=== PATIENT | male | born 1985 | race African-American/Black ===

== ENCOUNTER 2016-07-21 15:42 | Emergency (ER) | payer MEDICAID ==
[~2016-07-21] VITALS: Ht 185.4 cm; Wt 113.3 kg
[~2016-07-21 15:42] MED LIST: CIPR500T4 PO; FLAG500T PO
[2016-07-21 15:45] VITALS: BP 123/80; PULSE 89; RESP 15; TEMP 98.4; O2SAT 97
[2016-07-21] MEDS ORDERED: BACT800T5 PO (16:21)
--- NOTE | 2016-07-21 16:21 | PD ---
HPI Chief Complaint: Complaint Time Seen by Provider: 16:03 Travel History International Travel<30 days: No Contact w/Intl Traveler<30days: No Traveled to known affect area: No History of Present Illness HPI 31-year-old man who presents with a tender nodule in his perineum. He has a history of scrotal abscess required I&D about a year ago. He states past 2 days there is minimal but more tender. It is not as painful as before. No fevers or chills. No drainage. No other complaints. History Past Medical History Medical History: Denies Significant Hx Influenza Vaccination: No Social History Alcohol Use: No Tobacco Use: Yes (1PPD) Allergies-Medications (Allergen,Severity, Reaction): Coded Allergies: Pepcid (Verified Allergy, Severe, Swelling, 07/21/16) Zantac (Verified Allergy, Severe, Hives, 07/21/16) Reported Meds & Prescriptions Reported Meds & Active Scripts Active No Active Prescriptions or Reported Medications Review of Systems Except as stated in HPI: all other systems reviewed are Neg Physical Exam Narrative GENERAL: Well-appearing 31-year-old man, no acute distress. SKIN: Warm and dry. CARDIOVASCULAR: Warm and well perfused. RESPIRATORY: Normal rate and effort. : Normal external male genitalia. In the perineum, just posterior to the scrotum, there is a small tender nodule with an area of previous scarring. There is no fluctuance or redness. There is only minimal tenderness. NEUROLOGICAL: Awake and alert. No gross deficits. Data Data Last Documented VS Vital Signs Date Time Temp Pulse Resp B/P Pulse Ox O2 Delivery O2 Flow Rate FiO2 07/21/16 15:45 98.4 89 15 123/80 97 MDM Medical Decision Making Medical Screen Exam Complete: Yes Emergency Medical Condition: Yes Differential Diagnosis Abscess, phlegmon, scar, nodule, other Narrative Course Medical decision making 31-year-old man with a tender nodule on his perineum. It looks like he has scarring from his previous I&D. I don't see fluctuant redness or erythema or significant tenderness to suggest recurrent infection. There could be early infection or he could be having just some irritation of the scar. 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 On liver prescription for Bactrim and encouraged him to started in 24 hours if he has really worsening symptoms, or in 48 hours if not improving. Diagnosis Primary Impression: Perineal pain in male Additional Instructions: Take Bactrim in 24 hours if you have any worsening symptoms, or in 48 hours if not improving. Return to the emergency department for any new or worsening symptoms. Med/Other Pt SpecificInfo: Prescription(s) given Scripts Sulfamethoxazole-Trimethoprim (Bactrim DS)800-160 Mg Tab1 Tab PO BID #14 TAB Ref 0 Prov:Tung Vargas MD 07/21/16 Disposition: 01 DISCHARGE HOME Condition: Stable Tung Vargas MD Jul 21, 2016 16:21
== END 2016-07-21 16:34 | disposition home or self-care (01) ==
LOC: PHED 15:42
DX: R10.2 Pelvic and perineal pain (principal); F17.210 Nicotine dependence, cigarettes, uncomplicated
CPT/HCPCS: 99283

== ENCOUNTER 2016-07-24 07:12 | Emergency (ER) | payer MEDICAID ==
[~2016-07-24] VITALS: Ht 185.4 cm; Wt 112.0 kg
[~2016-07-24 07:12] MED LIST changes: +BACT800T5 PO; -CIPR500T4 PO; -FLAG500T PO
[2016-07-24 07:21] VITALS: BP 131/89; PULSE 88; RESP 17; TEMP 98.4; O2SAT 97
[2016-07-24] MEDS ORDERED: CLINDAMYCIN INJ 600 MG in SODIUM CHLORIDE 0.9% INJ 100 ML IV ONE (07:30)
[2016-07-24] MEDS ORDERED: LIDOCAINE HCL 1% 50 ML VIAL INFIL ONE (07:30)
--- NOTE | 2016-07-24 07:43 | PD ---
HPI Chief Complaint: Pain: Acute or Chronic Time Seen by Provider: 07:19 Travel History International Travel<30 days: No Contact w/Intl Traveler<30days: No Traveled to known affect area: No History of Present Illness HPI 31yo M presents to the ED with c/o worsening pain in his perineum. Pt was seen 07/21/16 and found to have a tender nodule in his perineum. There was no fluctuance at the time and pt was prescribed bactrim. Pt states he has been taking bactrim and today is day 4. States the pain is getting worse and he thinks there is swelling but cant see. Denies any fever, chest pain, sob, n/v, abdominal pain. Pt was admitted 08/05/15-08/07/15 for the same thing and had I&D in the ED. Pt was admitted for IV antibiotics and urology was consulted. PFSH Past Medical History Medical History: Denies Significant Hx Hx Anticoagulant Therapy: No Cancer: No Cardiovascular Problems: No Chemotherapy: No Cerebrovascular Accident: No Diabetes: No Diminished Hearing: No Endocrine: No Gastrointestinal Disorders: No Genitourinary: No Immune Disorder: No Implanted Vascular Access Dvce: No Musculoskeletal: No Neurologic: No Psychiatric: No Reproductive: No Respiratory: No Immunizations Current: No Tetanus Vaccination: < 5 Years Past Surgical History Other Surgery: Yes (PILONIDAL CYST) Social History Alcohol Use: No Tobacco Use: Yes (1PPD) Substance Use: No Allergies-Medications (Allergen,Severity, Reaction): Coded Allergies: Pepcid (Verified Allergy, Severe, Swelling, 07/24/16) Zantac (Verified Allergy, Severe, Hives, 07/24/16) Reported Meds & Prescriptions Reported Meds & Active Scripts Active Ibuprofen 600 Mg Tab 600 Mg PO Q8HR PRN Clindamycin (Clindamycin HCl) 300 Mg Cap 300 Mg PO Q6H 7 Days Bactrim DS (Sulfamethoxazole-Trimethoprim) 800-160 Mg Tab 1 Tab PO BID Review of Systems Except as stated in HPI: all other systems reviewed are Neg Physical Exam Narrative GENERAL: 31yo M not in distress. SKIN: Focused skin assessment warm/dry. HEAD: Atraumatic. Normocephalic. CARDIOVASCULAR: Regular rate and rhythm. No murmur appreciated. RESPIRATORY: No accessory muscle use. Clear to auscultation. Breath sounds equal bilaterally. GASTROINTESTINAL: Abdomen soft, non-tender, nondistended. No rebound tenderness or guarding. : No ttp bilateral testicles. No penile discharge. +TTP and 3cm by 2cm swelling in perineum. +Fluctuance. MUSCULOSKELETAL: No obvious deformities. No clubbing. No cyanosis. No edema. NEUROLOGICAL: Awake and alert. No obvious cranial nerve deficits. Motor grossly within normal limits. Normal speech. PSYCHIATRIC: Appropriate mood and affect; insight and judgment normal. Data Data Last Documented VS Vital Signs Date Time Temp Pulse Resp B/P Pulse Ox O2 Delivery O2 Flow Rate FiO2 07/24/16 07:21 98.4 88 17 131/89 97 Orders Complete Blood Count With Diff (07/24/16 07:27) Basic Metabolic Panel (Bmp) (07/24/16 07:27) Prothrombin Time / Inr (Pt) (07/24/16 07:27) Act Partial Throm Time (Ptt) (07/24/16 07:27) Blood Culture (07/24/16 07:27) Lactic Acid Sepsis Protocol (07/24/16 07:27) Wound Culture And Gram Stain (07/24/16 07:27) Clindamycin Inj (Cleocin Inj) (07/24/16 07:30) Lidocaine 1% Inj (50 Ml) (Xylocaine 1% I (07/24/16 07:30) Ct Abd/Pel W Iv Contrast(Rout) (07/24/16 ) Vancomycin Inj (Vancomycin Inj) (07/24/16 07:45) Piperacil-Tazo 3.375 Gm Premix (Zosyn 3. (07/24/16 07:45) Morphine Inj (Morphine Inj) (07/24/16 07:45) Iohexol 350 Inj (Omnipaque 350 Inj) (07/24/16 08:17) Labs Laboratory Tests Test 07/24/16 07:30 White Blood Count 11.0 TH/MM3 Red Blood Count 5.74 MIL/MM3 Hemoglobin 15.0 GM/DL Hematocrit 45.7 % Mean Corpuscular Volume 79.6 FL Mean Corpuscular Hemoglobin 26.1 PG Mean Corpuscular Hemoglobin 32.8 % Concent Red Cell Distribution Width 14.2 % Platelet Count 306 TH/MM3 Mean Platelet Volume 8.2 FL Neutrophils (%) (Auto) 70.9 % Lymphocytes (%) (Auto) 22.3 % Monocytes (%) (Auto) 5.8 % Eosinophils (%) (Auto) 0.7 % Basophils (%) (Auto) 0.3 % Neutrophils # (Auto) 7.9 TH/MM3 Lymphocytes # (Auto) 2.4 TH/MM3 Monocytes # (Auto) 0.6 TH/MM3 Eosinophils # (Auto) 0.1 TH/MM3 Basophils # (Auto) 0.0 TH/MM3 CBC Comment DIFF FINAL Differential Comment Prothrombin Time 9.8 SEC Prothromb Time International 0.9 RATIO Ratio Activated Partial 28.0 SEC Thromboplast Time Sodium Level 136 MEQ/L Potassium Level 4.3 MEQ/L Chloride Level 102 MEQ/L Carbon Dioxide Level 26.1 MEQ/L Anion Gap 8 MEQ/L Blood Urea Nitrogen 12 MG/DL Creatinine 1.00 MG/DL Estimat Glomerular Filtration 105 ML/MIN Rate Random Glucose 289 MG/DL Lactic Acid Level 0.9 mmol/L Calcium Level 8.7 MG/DL MDM Medical Decision Making Medical Screen Exam Complete: Yes Emergency Medical Condition: Yes Interpretation(s) Laboratory Tests Test 07/24/16 07:30 White Blood Count 11.0 TH/MM3 (4.0-11.0) Red Blood Count 5.74 MIL/MM3 (4.50-5.90) Hemoglobin 15.0 GM/DL (13.0-17.0) Hematocrit 45.7 % (39.0-51.0) Mean Corpuscular Volume 79.6 FL (80.0-100.0) Mean Corpuscular Hemoglobin 26.1 PG (27.0-34.0) Mean Corpuscular Hemoglobin 32.8 % Concent (32.0-36.0) Red Cell Distribution Width 14.2 % (11.6-17.2) Platelet Count 306 TH/MM3 (150-450) Mean Platelet Volume 8.2 FL (7.0-11.0) Neutrophils (%) (Auto) 70.9 % (16.0-70.0) Lymphocytes (%) (Auto) 22.3 % (9.0-44.0) Monocytes (%) (Auto) 5.8 % (0.0-8.0) Eosinophils (%) (Auto) 0.7 % (0.0-4.0) Basophils (%) (Auto) 0.3 % (0.0-2.0) Neutrophils # (Auto) 7.9 TH/MM3 (1.8-7.7) Lymphocytes # (Auto) 2.4 TH/MM3 (1.0-4.8) Monocytes # (Auto) 0.6 TH/MM3 (0-0.9) Eosinophils # (Auto) 0.1 TH/MM3 (0-0.4) Basophils # (Auto) 0.0 TH/MM3 (0-0.2) CBC Comment DIFF FINAL Differential Comment Prothrombin Time 9.8 SEC (9.8-11.6) Prothromb Time International 0.9 RATIO Ratio Activated Partial 28.0 SEC Thromboplast Time (24.3-30.1) Sodium Level 136 MEQ/L (136-145) Potassium Level 4.3 MEQ/L (3.5-5.1) Chloride Level 102 MEQ/L (98-107) Carbon Dioxide Level 26.1 MEQ/L (21.0-32.0) Anion Gap 8 MEQ/L (5-15) Blood Urea Nitrogen 12 MG/DL (7-18) Creatinine 1.00 MG/DL (0.60-1.30) Estimat Glomerular Filtration 105 ML/MIN Rate (>89) Random Glucose 289 MG/DL (74-106) Lactic Acid Level 0.9 mmol/L (0.4-2.0) Calcium Level 8.7 MG/DL (8.5-10.1) Last Impressions Abdomen/Pelvis CT 07/24/16 0000 Signed Impressions: Service Date/Time: Sunday, July 24, 2016 07:50 - CONCLUSION: 1. No abnormality is identified to explain the left inguinal pain. No acute finding is identified. 2. Chronic and partially visualized presumed fluid collection along the perineum. Abdulkadir Nguyen MD Differential Diagnosis perineal abscess vs. cellulitis that failed outpatient treatment vs. Tashia's gangrene (unlikely base on exam) Narrative Course 31yo M with recurrent perineal abscess and worsening pain after being on outpatient antibiotics. Pt is nontoxic appearing but has failed outpatient treatment. Exam is consistent with abscess. Will obtain labs, IV access, and CTa/p to see the extend of the infection before I&D. Will cover empirically with vancomycin and zosyn. Labs reviewed, no leukocytosis. WBC 11. Lactic acid 0.9. Glucose is 289, instructed pt to obtain PMD for work up of possible diabetes. No increased anion gap. CTa/p showed no abnormality. No acute finding. Chronic and partially visualized presumed fluid collection along the perineum. Pt given morphine which relieved pain. I&D was performed at bedside with lidocaine and purulent discharge was expressed. Recommended pt be admitted for observation for IV antibiotics since he failed outpatient treatment. However, pt refused admission and states that he will return in 48 hours for wound check. Pt is nontoxic appearing and abscess is localized and drained so symptoms should improve. Return precautions given. Procedures Procedure Narrative INCISION AND DRAINAGE OF ABSCESS: The area was prepped and was sterilely draped. A subcutaneous wheal of 1% Xylocaine with a total number 5 mL was used to anesthetize the area properly. A number 11 scalpel was used to make a 1 -cm incision across the area of the abscess. The abscess was drained, complex loculations were broken down. Cultures were obtained. Quarter inch iodoform packing was placed in the wound. Sterile dressing applied. Patient advised to have packing removed in two days. Diagnosis Primary Impression: Perineal abscess Patient Instructions: General Instructions Departure Forms: Tests/Procedures Additional Instructions: Please return to the ED in 48 hours for wound check and removal of packing. Return to the ED earlier if symptoms worsen. Med/Other Pt SpecificInfo: Prescription(s) given Scripts Ibuprofen 600 Mg Snr011 Mg PO Q8HR PRN (PAIN) #20 TAB Ref 0 Prov:Yael Carlisle DO 07/24/16 Clindamycin 300 Mg Brl695 Mg PO Q6H 7 Days Ref 0 Prov:Yael Carlisle DO 07/24/16 Disposition: 01 DISCHARGE HOME Condition: Stable CarlisleYael DO Jul 24, 2016 07:43
[2016-07-24] MEDS ORDERED: VANCOMYCIN INJ 1,700 MG in SODIUM CHLORID 0.9% 500 ML INJ 500 ML IV ONE (07:45)
[2016-07-24] MEDS ORDERED: MORPHINE SULFATE 4 MG/ML INJ IV PUSH ONE (07:45)
[2016-07-24] MEDS ORDERED: PIPERACIL-TAZO 3.375 GM PREMIX 50 ML IV ONE (07:45)
[2016-07-24 08:00] LABS: AUTOMATED NEUTROPHIL # 7.9 TH/MM3 (1.8-7.7); BASOPHIL % 0.3 % (0.0-2.0); EOSINOPHIL # 0.1 TH/MM3 (0-0.4); EOSINOPHIL % 0.7 % (0.0-4.0); HEMATOCRIT 45.7 % (39.0-51.0); HEMO FLAGS DIFF FINAL; LYMPH % 22.3 % (9.0-44.0); LYMPHOCYTE # 2.4 TH/MM3 (1.0-4.8); MEAN CELL VOLUME 79.6 FL (80.0-100.0); MEAN CORPUSCULAR HEMOGLOBIN 26.1 PG (27.0-34.0); MEAN CORPUSCULAR HGB CONC 32.8 % (32.0-36.0); MONO % 5.8 % (0.0-8.0); NEUT % 70.9 % (16.0-70.0); PLATELET COUNT 306 TH/MM3 (150-450); RED BLOOD COUNT 5.74 MIL/MM3 (4.50-5.90); RED CELL DISTRIBUTION WIDTH 14.2 % (11.6-17.2)
[2016-07-24 08:11] LABS: POTASSIUM 4.3 MEQ/L (3.5-5.1)
[2016-07-24 08:14] LABS: BICARBONATE 26.1 MEQ/L (21.0-32.0)
[2016-07-24 08:15] LABS: INTERNATIONAL NORMALIZED RATIO 0.9 RATIO; PROTHROMBIN TIME - PATIENT 9.8 SEC (9.8-11.6)
[2016-07-24] MEDS ORDERED: IOHEXOL 350 MG/ML 10 ML VIAL (for RAD DIAG) IV ONE (08:17)
--- NOTE | 2016-07-24 08:48 | RADHPO ---
EXAM DATE/TIME: 07/24/2016 07:50 [facility] COMPARISON: CT ABDOMEN & PELVIS W CONTRAST, August 05, 2015, 1:28. INDICATIONS : Left inguinal pain. IV CONTRAST: 95 cc Omnipaque 350 (iohexol) IV ORAL CONTRAST: No oral contrast ingested. RADIATION DOSE: 19.50 CTDIvol (mGy) MEDICAL HISTORY : None SURGICAL HISTORY : None. ENCOUNTER: Initial ACUITY: 4 - 6 days PAIN SCALE: 2/10 LOCATION: Left abdomen/pelvis TECHNIQUE: Volumetric scanning of the abdomen and pelvis was performed. Using automated exposure control and ad justment of the mA and/or kV according to patient size, radiation dose was kept as low as reasonably achievable to obtain optimal diagnostic quality images. FINDINGS: LOWER LUNGS: The visualized lower lungs are clear. LIVER: Homogeneous density without lesion. There is no dilation of the biliary tree. No calcified gallston es. SPLEEN: Normal size without lesion. PANCREAS: Within normal limits. KIDNEYS: Normal in size and shape. There is no mass, stone or hydronephrosis. ADRENAL GLANDS: Within normal limits. VASCULAR: There is no aortic aneurysm. BOWEL/MESENTERY: The stomach, small bowel, and colon demonstrate no acute abnormality. There is no free intraperitone al air or fluid. Appendix is normal. ABDOMINAL WALL: Within normal limits. RETROPERITONEUM: There is no lymphadenopathy. BLADDER: No wall thickening or mass. REPRODUCTIVE: Within normal limits. There is a chronic partially visualized low-density fluid collection along the perineum posterior to the scrotum. INGUINAL: There is no lymphadenopathy or hernia. MUSCULOSKELETAL: Within normal limits for patient age. CONCLUSION: 1. No abnormality is identified to explain the left inguinal pain. No acute finding is identified. 2. Chronic and partially visualized presumed fluid collection along the perineum. Abdulkadir Nguyen MD on July 24, 2016 at 8:41 Board Certified Radiologist. This report was verified electronically.
[2016-07-24] MEDS ORDERED: IBUP-232 PO (09:23)
[2016-07-24] MEDS ORDERED: CLIN1CAP6 PO (09:23)
[2016-07-24 10:27] VITALS: BP 163/85
== END 2016-07-24 10:46 | disposition home or self-care (01) ==
LOC: PHED 07:12
DX: L02.215 Cutaneous abscess of perineum (principal); B96.89 Other specified bacterial agents as the cause of diseases classified elsewhere; F17.210 Nicotine dependence, cigarettes, uncomplicated
CPT/HCPCS: 46050; 74177; 80048; 83605; 85025; 85610; 85730; 87040; 87070; 87185; 96365; 96366; 96367; 96375; 99284; J2270; J2543; J3370; J7040; Q9967

== ENCOUNTER 2016-07-26 08:08 | Emergency (ER) | payer SELFPAY ==
[~2016-07-26] VITALS: Ht 185.4 cm; Wt 111.1 kg
[~2016-07-26 08:08] MED LIST changes: +CLIN1CAP6 PO; +IBUP-232 PO
[2016-07-26 08:12] VITALS: BP 138/92; PULSE 87; RESP 16; TEMP 98.3; O2SAT 97
--- NOTE | 2016-07-26 08:31 | PD ---
HPI Chief Complaint: Wound/Suture/Staple Re-Check Time Seen by Provider: 08:21 Travel History International Travel<30 days: No Contact w/Intl Traveler<30days: No Traveled to known affect area: No History of Present Illness HPI This 31-year-old male is here for a scheduled recheck of a perineal abscess. He was here on July 21 and noted to have some mild swelling. He was put on Bactrim. He returned on the with increasing pain. At that time the CT showed fluid collection and an I&D was done and pus was obtained. Packing was inserted and the patient says the packing just fell out this morning prior to coming here. He says he has been doing well. His pain is much improved. He has not had any fever or chills PFSH Past Medical History Medical History: Denies Significant Hx Hx Anticoagulant Therapy: No Cancer: No Cardiovascular Problems: No Chemotherapy: No Cerebrovascular Accident: No Diabetes: No Diminished Hearing: No Endocrine: No Gastrointestinal Disorders: No Genitourinary: No Immune Disorder: No Implanted Vascular Access Dvce: No Musculoskeletal: No Neurologic: No Psychiatric: No Reproductive: No Respiratory: No Immunizations Current: No Tetanus Vaccination: < 5 Years Influenza Vaccination: No Past Surgical History Other Surgery: Yes (PILONIDAL CYST) Social History Alcohol Use: No Tobacco Use: Yes (1PPD) Substance Use: No Allergies-Medications (Allergen,Severity, Reaction): Coded Allergies: Pepcid (Verified Allergy, Severe, Swelling, 07/26/16) Zantac (Verified Allergy, Severe, Hives, 07/26/16) Reported Meds & Prescriptions Reported Meds & Active Scripts Active Ibuprofen 600 Mg Tab 600 Mg PO Q8HR PRN Clindamycin (Clindamycin HCl) 300 Mg Cap 300 Mg PO Q6H 7 Days Review of Systems General / Constitutional: No: Fever, Chills Gastrointestinal: No: Abdominal Pain Musculoskeletal: No: Pain Physical Exam Narrative GENERAL: Well-developed male SKIN: Focused skin assessment warm/dry. HEAD: Atraumatic. Normocephalic. EYES: Pupils equal and round. No scleral icterus. No injection or drainage. ENT: No nasal bleeding or discharge. Mucous membranes pink and moist. NECK: Trachea midline. No JVD. GASTROINTESTINAL: Abdomen soft, non-tender, nondistended. Hepatic and splenic margins not palpable. In the perineal area there is an open wound. There is no purulent drainage at this time. The surrounding area is nontender MUSCULOSKELETAL: No obvious deformities. No clubbing. No cyanosis. No edema. . PSYCHIATRIC: Appropriate mood and affect; insight and judgment normal. Data Data Last Documented VS Vital Signs Date Time Temp Pulse Resp B/P Pulse Ox O2 Delivery O2 Flow Rate FiO2 07/26/16 08:16 16 07/26/16 08:12 98.3 87 138/92 97 MDM Medical Decision Making Medical Screen Exam Complete: Yes Emergency Medical Condition: Yes Medical Record Reviewed: Yes Differential Diagnosis Differential includes resolving abscess, Narrative Course Examination suggests that this was a successful I&D. His pain is diminished. He will be released. I recommend that he suddenly looked up as often as possible. Continue his antibiotics Diagnosis Primary Impression: Perineal abscess Additional Impression: healing abscess Additional Instructions: soak in tub, complete antibiotic Disposition: 01 DISCHARGE HOME Condition: Stable Andres Ortiz MD Jul 26, 2016 08:31
== END 2016-07-26 08:55 | disposition home or self-care (01) ==
LOC: PHED 08:08
DX: L02.215 Cutaneous abscess of perineum (principal); Z08 Encounter for follow-up examination after completed treatment for malignant neoplasm
CPT/HCPCS: 99281

== ENCOUNTER 2017-02-25 14:30 | Emergency (ER) | payer SELFPAY ==
[~2017-02-25] VITALS: Ht 185.4 cm; Wt 113.0 kg
[~2017-02-25 14:30] MED LIST changes: -BACT800T5 PO; -CLIN1CAP6 PO; +CLIN300C5 PO
[2017-02-25 14:36] VITALS: BP 160/85; PULSE 94; RESP 16; TEMP 98.6; O2SAT 98
[2017-02-25] MEDS ORDERED: CLOTCRE TOPICAL (15:52)
--- NOTE | 2017-02-25 15:53 | PD ---
HPI Chief Complaint: Skin Problem Time Seen by Provider: 15:44 Travel History International Travel<30 days: No Contact w/Intl Traveler<30days: No Traveled to known affect area: No History of Present Illness HPI 32 year old male presents to the emergency department for evaluation of a scaly rash to his left medial hand that started approximately a week ago. Patient denies any pain or drainage. No erythema. Patient states it is itchy. He denies any injury to the area. Patient has no chronic medical problems and takes no prescribed medications. No exacerbating or alleviating factors. Severity is mild. No loss of range of motion. PFSH Past Medical History Hx Anticoagulant Therapy: No Cancer: No Cardiovascular Problems: No Chemotherapy: No Cerebrovascular Accident: No Diabetes: No Diminished Hearing: No Endocrine: No Gastrointestinal Disorders: No Genitourinary: No Immune Disorder: No Implanted Vascular Access Dvce: No Musculoskeletal: No Neurologic: No Psychiatric: No Reproductive: No Respiratory: No Immunizations Current: No Past Surgical History Other Surgery: Yes (PILONIDAL CYST) Social History Alcohol Use: No Tobacco Use: Yes (1PPD) Substance Use: No Allergies-Medications (Allergen,Severity, Reaction): Coded Allergies: famotidine (Unverified Allergy, Severe, Swelling, 02/25/17) ranitidine (Unverified Allergy, Severe, Hives, 02/25/17) Reported Meds & Prescriptions Reported Meds & Active Scripts Active Ibuprofen 600 Mg Tab 600 Mg PO Q8HR PRN Clindamycin (Clindamycin HCl) 300 Mg Cap 300 Mg PO Q6H 7 Days Review of Systems Except as stated in HPI: all other systems reviewed are Neg Physical Exam Narrative GENERAL: Well-nourished, well-developed male patient, ambulatory and afebrile. SKIN: Focused skin assessment warm/dry. Patient has a 2 cm round scaly area to the left medial hand without erythema or drainage. No tenderness to palpation. No evidence of cellulitis or abscess on exam. HEAD: Normocephalic. Atraumatic. EYES: No scleral icterus. No injection or drainage. NECK: Supple, trachea midline. No JVD or lymphadenopathy. CARDIOVASCULAR: Regular rate and rhythm without murmurs, gallops, or rubs. RESPIRATORY: Breath sounds equal bilaterally. No accessory muscle use. Lung sounds are clear to auscultation. GASTROINTESTINAL: Abdomen soft, non-tender, nondistended. MUSCULOSKELETAL: No cyanosis, or edema. BACK: Nontender without obvious deformity. No CVA tenderness. Data Data Last Documented VS Vital Signs Date Time Temp Pulse Resp B/P (MAP) Pulse Ox O2 Delivery O2 Flow Rate FiO2 02/25/17 14:36 98.6 94 16 160/85 (110) 98 MDM Medical Decision Making Medical Screen Exam Complete: Yes Emergency Medical Condition: Yes Medical Record Reviewed: Yes Differential Diagnosis arthur vs. contact dermitis vs. cellulitis vs. abscess Narrative Course 32 year old male presents to the emergency department for evaluation of skin rash to the right medial hand for 1 week. No evidence of cellulitis or abscess on exam. Patient will be discharged with a prescription for clotrimazole- betamethasone cream. He is to monitor closely and return for any signs/ symptoms of infection which were discussed with him. He verbalizes agreement and understanding. The patient was discharged in stable condition with instructions, including return instructions and follow up instructions. Diagnosis Primary Impression: Skin rash Referrals: Primary Care Physician call for appointment Patient Instructions: Acute Rash (ED), General Instructions Additional Instructions: Keep clean and dry. Use prescribed cream as directed. Follow up with your primary care physician. Return for any signs/symptoms of infection including redness, warmth, drainage, pain. Med/Other Pt SpecificInfo: Prescription(s) given Scripts Clotrimazole-Betamethasone Topical (Clotrimazole-Betamethasone Topical) 1-0.05% Cream 1 APPLIC TOPICAL BID for Fungal Infection, #45 GM 0 Refills Prov: Terrie Killian 02/25/17 Disposition: 01 DISCHARGE HOME Condition: Stable Terrie Killian Feb 25, 2017 15:53
== END 2017-02-25 15:57 | disposition home or self-care (01) ==
LOC: PHED 14:30 → PHEFT 15:57
DX: R21 Rash and other nonspecific skin eruption (principal); L29.9 Pruritus, unspecified; F17.200 Nicotine dependence, unspecified, uncomplicated
CPT/HCPCS: 99283